=== PATIENT | female | born 1970 | race Caucasian/White ===

== ENCOUNTER 2017-06-30 17:33 | Emergency (ER) | payer SELFPAY ==
[2017-06-30 17:34] VITALS: BP 127/63; PULSE 89; RESP 16; TEMP 36.9; O2SAT 96; BMI 31.6
[2017-06-30] MEDS: Diphth,Pertuss(Acell),Tet Vac 0.5 ML Vial IM (18:08)
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
--- NOTE | 2017-06-30 18:54 | ED.DEP ---
ED Disposition - Plan for ED Patient: Disposition: Home or Assisted Living Chief Complaint: Head Injury Instructions: ED Laceration Scalp Stitch Or Stap Referrals: Michelle Lee DO [Primary Care Provider] - 10 Day for suture removal
[2017-06-30 19:00] VITALS: BP 101/65; PULSE 71; RESP 17; O2SAT 97
== END 2017-06-30 19:05 | disposition home or self-care (01) ==
PROVIDERS: Emergency Provider Emergency Medicine; Family Provider Internal Medicine; PCP Internal Medicine
DX: S01.01XA Laceration without foreign body of scalp, initial encounter (principal); W22.8XXA Striking against or struck by other objects, initial encounter; Y93.9 Activity, unspecified; Y92.89 Other specified places as the place of occurrence of the external cause; Y99.9 Unspecified external cause status
CPT/HCPCS: 12002; 90715; 99283